=== PATIENT | male | born 1975 | race Caucasian/White ===

== ENCOUNTER 2017-02-17 11:24 | Emergency (ER) | payer SELFPAY ==
[2017-02-17] MEDS ORDERED: Albuterol/Ipratropium 3.0-0.5 MG/3 ML Neb Soln NEB ONE (12:03)
[2017-02-17 12:39] LABS: CHLORIDE,CL 100 mmol/L (98-110); SODIUM,NA 137 mmol/L (136-146)
--- NOTE | 2017-02-17 12:49 | CR ---
EXAMINATION: Two-view chest (PA and Lateral views). HISTORY: Shortness of breath. FINDINGS: The trachea is midline. The cardiomediastinal silhouette is within normal limits. No pulmonary infil trates, effusions or pneumothorax. Osseous structures appear unremarkable. IMPRESSION: No acute cardiopulmonary process.
--- NOTE | 2017-02-17 13:02 | EDM.PDOC ---
ED HPI GENERAL MEDICAL PROBLEM - General Chief Complaint: General Stated Complaint: HIGH BLOOD PRESSURE, RETAINING WATER Time Seen by Provider: 02/17/17 11:30 Source of Information: Reports: Patient History Limitations: Reports: No Limitations - History of Present Illness INITIAL COMMENTS - FREE TEXT/NARRATIVE: History of present illness: []Patient stopped taking his blood pressure medicine about a year ago. Patient stated he noticed increasing leg swelling and then restart his blood pressure meds he comes in complaining high blood pressure and leg swelling. He denies pain in his legs denies any shortness of breath, fevers, chills or chest pain. Patient is a smoker and does not follow-up with primary care. Review of systems: As per history of present illness and below otherwise all systems reviewed and negative. Past medical history: As per history of present illness and as reviewed below otherwise noncontributory. Surgical history: As per history of present illness and as reviewed below otherwise noncontributory. Social history: No reported history of drug or alcohol abuse. Family history: As per history of present illness and as reviewed below otherwise noncontributory. Physical exam: General: Well developed, well nourished in NAD HEENT: Atraumatic, normocephalic, pupils reactive, negative for conjunctival pallor or scleral icterus, mucous membranes moist, throat clear, neck supple, nontender, trachea midline. Lungs: Bilateral faint wheezing, no accessory muscle use to auscultation, breath sounds equal bilaterally, chest nontender. Heart: S1S2, regular, negative for clicks, rubs, or JVD. 1+ pitting edema, nontender Abdomen: Soft, nondistended, nontender. Negative for masses or hepatosplenomegaly. Negative for costovertebral tenderness. Pelvis: Stable nontender. Genitourinary: Deferred. Rectal: Deferred. Extremities: Atraumatic, negative for cords or calf pain. Neurovascular unremarkable. Neuro: Awake, alert, oriented. Cranial nerves II through XII unremarkable. Cerebellum unremarkable. Motor and sensory unremarkable throughout. Exam nonfocal. Diagnostics: []Electrolytes and CBC, BNP and troponin are negative EKG shows normal sinus rhythm without ischemia patient presents with a mildly elevated blood pressure Therapeutics: []Was given a DuoNeb Impression: []Hypertension, bilateral leg edema Plan: []Continue blood pressure medicines, Lasix and potassium for 5 days follow-up with PMD. Definitive disposition and diagnosis as appropriate pending reevaluation and review of above. both feet Pain Score (Numeric/FACES): 3 - Related Data Allergies Allergy/AdvReac Type Severity Reaction Status Date / Time No Known Allergies Allergy Verified 02/17/17 11:29 Home Meds: Home Meds [place] Supplement tab BID 02/17/17 [History] Carvedilol 12.5 mg PO BID 02/17/17 [History] Furosemide [Lasix] 20 mg PO DAILY #10 tablet 02/17/17 [Rx] Potassium Chloride 10 meq PO DAILY #10 capsule.er 02/17/17 [Rx] Past Medical History - Past Health History Medical/Surgical History: Denies Medical/Surgical History Cardiovascular History: Reports: Hypertension Social & Family History - Family History Family Medical History: Noncontributory - Tobacco Use Smoking Status *Q: Current Every Day Smoker Years of Tobacco use: 22 Packs/Tins Daily: 1 - Caffeine Use Caffeine Use: Reports: Coffee Caffeine Use Comment: 2 cups daily - Recreational Drug Use Recreational Drug Use: Yes Recreational Drug Type: Reports: Marijuana/Hashish Recreational Drug Use Frequency: Binges ED ROS GENERAL - Review of Systems Review Of Systems: See Below ED EXAM, GENERAL - Physical Exam Exam: See Below (CHPI) Course - Vital Signs Last Recorded V/S: Last Vital Signs Temp 36.2 C 02/17/17 11:30 Pulse 102 H 02/17/17 11:30 Resp 20 02/17/17 11:30 BP 131/96 H 02/17/17 11:30 Pulse Ox 97 02/17/17 12:03 - Orders/Labs/Meds Orders: Active Orders 24 hr Category Date Time Status Cardiac Monitoring [RC] . DIRECTED Care 02/17/17 11:43 Active EKG Documentation Completion [RC] STAT Care 02/17/17 11:43 Active RT Aerosol Therapy [RC] ASDIRECTED Care 02/17/17 12:03 Active Saline Lock Insert [OM.PC] Stat Oth 02/17/17 11:43 Ordered Labs: Laboratory Tests 02/17/17 02/17/17 02/17/17 Range/Units 12:04 12:04 12:04 WBC 14.94 H (4.0-11.0) K/uL RBC 4.89 (4.50-5.90) M/uL Hgb 15.5 (13.0-17.0) g/dL Hct 46.4 (38.0-50.0) % MCV 94.9 (80.0-98.0) fL MCH 31.7 (27.0-32.0) pg MCHC 33.4 (31.0-37.0) g/dL RDW Std Deviation 50.3 (28.0-62.0) fl RDW Coeff of Mary Jo 15 (11.0-15.0) % Plt Count 333 (150-400) K/uL MPV 9.10 (7.40-12.00) fL Neut % (Auto) 66.9 (48.0-80.0) % Lymph % (Auto) 23.4 (16.0-40.0) % [place] % (Auto) 5.4 (0.0-15.0) % Eos % (Auto) 3.9 (0.0-7.0) % Baso % (Auto) 0.4 (0.0-1.5) % Neut # (Auto) 10.0 H (1.4-5.7) K/uL Lymph # (Auto) 3.5 H (0.6-2.4) K/uL [place] # (Auto) 0.8 (0.0-0.8) K/uL Eos # (Auto) 0.6 (0.0-0.7) K/uL Baso # (Auto) 0.1 (0.0-0.1) K/uL Nucleated RBC % 0.0 /100WBC Nucleated RBCs # 0 K/uL Sodium 137 (136-146) mmol/L Potassium 4.7 (3.5-5.1) mmol/L Chloride 100 (98-110) mmol/L Carbon Dioxide 27 (21-31) mmol/L BUN 12 (6.0-23.0) mg/dL Creatinine 1.0 (0.6-1.5) mg/dL Est Cr Clr Drug Dosing 88.61 mL/min Estimated GFR (MDRD) > 60.0 ml/min Glucose 94 (60-110) mg/dL Calcium 9.4 (8.8-10.8) mg/dL Total Bilirubin 0.4 (0.1-1.5) mg/dL AST 22 (5-40) IU/L ALT 42 (8-54) IU/L Alkaline Phosphatase 80 (40-150) Troponin I < 0.10 (0.0-0.29) NG/ML B-Natriuretic Peptide (<100) PG/ML Total Protein 7.7 (6.0-8.0) g/dL Albumin 4.4 (3.5-5.0) g/dL Globulin 3.3 (2.0-3.5) g/dL Albumin/Globulin Ratio 1.3 (1.3-2.8) /08/24 Range/Units 12:04 WBC (4.0-11.0) K/uL RBC (4.50-5.90) M/uL Hgb (13.0-17.0) g/dL Hct (38.0-50.0) % MCV (80.0-98.0) fL MCH (27.0-32.0) pg MCHC (31.0-37.0) g/dL RDW Std Deviation (28.0-62.0) fl RDW Coeff of Mary Jo (11.0-15.0) % Plt Count (150-400) K/uL MPV (7.40-12.00) fL Neut % (Auto) (48.0-80.0) % Lymph % (Auto) (16.0-40.0) % [place] % (Auto) (0.0-15.0) % Eos % (Auto) (0.0-7.0) % Baso % (Auto) (0.0-1.5) % Neut # (Auto) (1.4-5.7) K/uL Lymph # (Auto) (0.6-2.4) K/uL [place] # (Auto) (0.0-0.8) K/uL Eos # (Auto) (0.0-0.7) K/uL Baso # (Auto) (0.0-0.1) K/uL Nucleated RBC % /100WBC Nucleated RBCs # K/uL Sodium (136-146) mmol/L Potassium (3.5-5.1) mmol/L Chloride (98-110) mmol/L Carbon Dioxide (21-31) mmol/L BUN (6.0-23.0) mg/dL Creatinine (0.6-1.5) mg/dL Est Cr Clr Drug Dosing mL/min Estimated GFR (MDRD) ml/min Glucose (60-110) mg/dL Calcium (8.8-10.8) mg/dL Total Bilirubin (0.1-1.5) mg/dL AST (5-40) IU/L ALT (8-54) IU/L Alkaline Phosphatase (40-150) Troponin I (0.0-0.29) NG/ML B-Natriuretic Peptide 56 (<100) PG/ML Total Protein (6.0-8.0) g/dL Albumin (3.5-5.0) g/dL Globulin (2.0-3.5) g/dL Albumin/Globulin Ratio (1.3-2.8) Meds: Medications Discontinued Medications Generic Name Dose Route Start Last Admin Trade Name Freq PRN Reason Stop Dose Admin Albuterol/Ipratropium 3 ml 02/17/17 12:03 02/17/17 12:14 Duoneb 3.0-0.5 Mg/3 Ml NEB 02/17/17 12:04 3 ml ONETIME ONE Administration Departure - Departure Time of Disposition: 13:02 Disposition: Home, Self-Care 01 Condition: good Clinical Impression: Uncontrolled hypertension, Bilateral leg edema - Discharge Information Prescriptions: Furosemide [Lasix] 20 mg PO DAILY #10 tablet Potassium Chloride 10 meq PO DAILY #10 capsule.er Referrals: PCP,None [Primary Care Provider] - Forms: ED Department Discharge Additional Instructions: The following information is given to patients seen in the emergency department who are being discharged to home. This information is to outline your options for follow-up care. We provide all patients seen in our emergency department with a follow-up referral. The need for follow-up, as well as the timing and circumstances, are variable depending upon the specifics of your emergency department visit. If you don't have a primary care physician on staff, we will provide you with a referral. We always advise you to contact your personal physician following an emergency department visit to inform them of the circumstance of the visit and for follow-up with them and/or the need for any referrals to a consulting specialist. The emergency department will also refer you to a specialist when appropriate. This referral assures that you have the opportunity for follow-up care with a specialist. All of these measure are taken in an effort to provide you with optimal care, which includes your follow-up. Under all circumstances we always encourage you to contact your private physician who remains a resource for coordinating your care. When calling for follow-up care, please make the office aware that this follow-up is from your recent emergency room visit. If for any reason you are refused follow-up, please contact the Emergency Department at and asked to speak to the emergency department charge nurse. Take her blood pressure medicines as directed, Lasix and potassium daily, follow -up with regular physician within a week. Return to ER if any symptoms change or worsen Primary Care [address] [place] [id number] - My Orders Last 24 Hours: My Active Orders 02/17/17 11:43 Cardiac Monitoring [RC] . DIRECTED EKG Documentation Completion [RC] STAT Saline Lock Insert [OM.PC] Stat 02/17/17 12:03 RT Aerosol Therapy [RC] ASDIRECTED - Assessment/Plan Last 24 Hours: My Active Orders 02/17/17 11:43 Cardiac Monitoring [RC] . DIRECTED EKG Documentation Completion [RC] STAT Saline Lock Insert [OM.PC] Stat 02/17/17 12:03 RT Aerosol Therapy [RC] ASDIRECTED
[2017-02-17 13:16] VITALS: BP 127/67
== END 2017-02-17 13:22 | disposition home or self-care (01) ==
LOC: MW.ED 11:24
DX: I10 Essential (primary) hypertension (principal); R60.0 Localized edema; F17.210 Nicotine dependence, cigarettes, uncomplicated; Z79.899 Other long term (current) drug therapy
CPT/HCPCS: 36415; 71020; 71020-26; 80053; 83880; 84484; 85025; 93005; 94664; 99283; 99284-25

== ENCOUNTER 2017-04-29 08:26 | Emergency (ER) | payer SELFPAY ==
[2017-04-29] MEDS ORDERED: Ketorolac 30 MG/ML SDV IM ONE (08:39)
--- NOTE | 2017-04-29 08:47 | EDM.PDOC ---
ED HPI GENERAL MEDICAL PROBLEM - General Chief Complaint: Lower Extremity Injury/Pain Stated Complaint: TWISTED LT ANKLE Time Seen by Provider: 04/29/17 08:34 - History of Present Illness INITIAL COMMENTS - FREE TEXT/NARRATIVE: HISTORY AND PHYSICAL: History of present illness: This is a 41-year-old male presenting to the emergency department chief complaint of left ankle pain. He tells me that he had a twist and fall last night after tripping over a hose. He tells me that he was able to initially bear weight and he thought he would sleep it off. However he woke up this morning, and was unable to bear any weight. He denies any numbness or tingling. He has no other complaints. Review of systems: As per history of present illness and below otherwise all systems reviewed and negative. Past medical history: As per history of present illness and as reviewed below otherwise noncontributory. Surgical history: As per history of present illness and as reviewed below otherwise noncontributory. Social history: No reported history of drug or alcohol abuse. Family history: As per history of present illness and as reviewed below otherwise noncontributory. Physical exam: HEENT: Atraumatic, normocephalic, pupils reactive, negative for conjunctival pallor or scleral icterus, mucous membranes moist, throat clear, neck supple, nontender, trachea midline. Lungs: Clear to auscultation, breath sounds equal bilaterally, chest nontender. Heart: S1S2, regular, negative for clicks, rubs, or JVD. Abdomen: Soft, nondistended, nontender. Negative for masses or hepatosplenomegaly. Negative for costovertebral tenderness. Pelvis: Stable nontender. Genitourinary: Deferred. Rectal: Deferred. Extremities: Tenderness on palpation over the lateral aspect of the leg, lateral malleolus and 5th metatarsal. Ankle does not appear to be acutely displaced. No significant induration. 1+ Pitting edema present secondary to CHF bilaterally. Neuro: Awake, alert, oriented. Cranial nerves II through XII unremarkable. Cerebellum unremarkable. Motor and sensory unremarkable throughout. Exam nonfocal. Diagnostics: X-ray Tibia Fibula X-ray ankle X-ray foot Therapeutics: IM Toradol 30mg Impression: Avulsion fracture of navicular bone. Plan: Discharge home with cam walker boot, crutches and advised to be non- weightbearing. Follow up with Dr. Ansari, podiatry. Left Ankle Pain Score (Numeric/FACES): 6 - Related Data Allergies Allergy/AdvReac Type Severity Reaction Status Date / Time No Known Allergies Allergy Verified 02/17/17 11:29 Home Meds: Home Meds Carvedilol 12.5 mg PO BID 02/17/17 [History] Bumetanide 1 mg PO BID 04/29/17 [History] Potassium Chloride 20 meq PO DAILY 04/29/17 [History] Past Medical History - Past Health History Medical/Surgical History: Denies Medical/Surgical History Cardiovascular History: Reports: Hypertension Social & Family History - Family History Family Medical History: Noncontributory - Tobacco Use Smoking Status *Q: Current Every Day Smoker Years of Tobacco use: 20 Packs/Tins Daily: 1 - Caffeine Use Caffeine Use: Reports: Coffee, Tea Caffeine Use Comment: 2 cups daily - Recreational Drug Use Recreational Drug Use: No Recreational Drug Type: Reports: Marijuana/Hashish Recreational Drug Use Frequency: Binges Review of Systems - Review of Systems Review Of Systems: See Below (see dictation) ED EXAM, GENERAL - Physical Exam Exam: See Below (see dictation) Course - Vital Signs Last Recorded V/S: Last Vital Signs Temp 35.9 C 04/29/17 08:39 Pulse 93 04/29/17 08:39 Resp 18 04/29/17 08:39 BP 137/89 04/29/17 08:39 Pulse Ox 95 04/29/17 08:39 - Orders/Labs/Meds Orders: Active Orders 24 hr Category Date Time Status Communication Order [RC] STAT Care 04/29/17 09:38 Active Meds: Medications Discontinued Medications Generic Name Dose Route Start Last Admin Trade Name Freq PRN Reason Stop Dose Admin Ketorolac Tromethamine 30 mg 04/29/17 08:39 04/29/17 09:04 Toradol IM 04/29/17 08:40 30 mg ONETIME ONE Administration Departure - Departure Time of Disposition: 09:45 Disposition: Home, Self-Care 01 Condition: Good Clinical Impression: Avulsion fracture of navicular bone of left foot - Discharge Information Referrals: Madie Mckay DPM [Physician] - Stefan Iglesias MD [Primary Care Provider] - Forms: ED Department Discharge Additional Instructions: The following information is given to patients seen in the emergency department who are being discharged to home. This information is to outline your options for follow-up care. We provide all patients seen in our emergency department with a follow-up referral. The need for follow-up, as well as the timing and circumstances, are variable depending upon the specifics of your emergency department visit. If you don't have a primary care physician on staff, we will provide you with a referral. We always advise you to contact your personal physician following an emergency department visit to inform them of the circumstance of the visit and for follow-up with them and/or the need for any referrals to a consulting specialist. The emergency department will also refer you to a specialist when appropriate. This referral assures that you have the opportunity for follow-up care with a specialist. All of these measure are taken in an effort to provide you with optimal care, which includes your follow-up. Under all circumstances we always encourage you to contact your private physician who remains a resource for coordinating your care. When calling for follow-up care, please make the office aware that this follow-up is from your recent emergency room visit. If for any reason you are refused follow-up, please contact the [facility] Emergency Department at and asked to speak to the emergency department charge nurse. Care Plan Goals: Follow up appointment with Dr. Mckay in the [facility] on 05/05/17 at 1500. - My Orders Last 24 Hours: My Active Orders 04/29/17 09:38 Communication Order [RC] STAT - Assessment/Plan Last 24 Hours: My Active Orders 04/29/17 09:38 Communication Order [RC] STAT
--- NOTE | 2017-04-29 09:31 | CR ---
EXAMINATION: Left foot, left ankle, left tibia and fibula HISTORY: Pain COMPARISON: None TECHNIQUE: 2 views of the left foot, 2 views of the left ankle, and 2 views of the left tibia and fi bula FINDINGS: There is mild generalized soft tissue swelling and edema noted from the left knee to the l eft foot. There is a small linear ossific density along the dorsal aspect of the ventricular bone, l ikely a small avulsion fracture. There is a small Achilles calcaneal spur. Remaining osseous structu res and joint spaces appear intact. Bone mineralization is otherwise normal. No foreign bodies or shaw bcutaneous gas noted. The ankle mortise and talar dome appear intact. IMPRESSION: 1. Probable small avulsion fracture along the dorsal aspect of the navicular bone. 2. Generalized soft tissue swelling/edema.
[2017-04-29 11:27] VITALS: BP 147/84
== END 2017-04-29 10:10 | disposition home or self-care (01) ==
LOC: MW.ED 08:26
DX: S92.252A Displaced fracture of navicular [scaphoid] of left foot, initial encounter for closed fracture (principal); I10 Essential (primary) hypertension; F17.210 Nicotine dependence, cigarettes, uncomplicated; Z79.899 Other long term (current) drug therapy; W01.0XXA Fall on same level from slipping, tripping and stumbling without subsequent striking against object, initial encounter
CPT/HCPCS: 73590; 73600; 73620; 96372; 99283; J1885

== ENCOUNTER 2019-04-16 12:50 | Emergency (ER) | payer BC ==
[2019-04-16 13:02] VITALS: BP 146/102; PULSE 113
--- NOTE | 2019-04-16 13:03 | EDM.PDOC ---
ED HPI GENERAL MEDICAL PROBLEM - General Chief Complaint: ENT Problem Stated Complaint: SWOLLEN EYES Time Seen by Provider: 04/16/19 13:00 Source of Information: Reports: Patient History Limitations: Reports: No Limitations - History of Present Illness INITIAL COMMENTS - FREE TEXT/NARRATIVE: History of present illness: [Patient has swelling of his left lower eyelid and states he had one year ago with a similar presentation and was treated with an eyedrop. He is requesting the same eyedrop as it worked well for him. He versed, visual changes, drainage , trauma or foreign body sensation in his eye. Review of systems: As per history of present illness and below otherwise all systems reviewed and negative. Past medical history: As per history of present illness and as reviewed below otherwise noncontributory. Surgical history: As per history of present illness and as reviewed below otherwise noncontributory. Social history: No reported history of drug or alcohol abuse. Family history: As per history of present illness and as reviewed below otherwise noncontributory. Physical exam: General: Well developed, well nourished in NAD HEENT: Atraumatic, normocephalic, pupils reactive, negative for conjunctival pallor or scleral icterus,right lower eyelid edematous and swollen mucous membranes moist, throat clear, neck supple, nontender, trachea midline. Lungs: Clear to auscultation, breath sounds equal bilaterally, chest nontender. Heart: S1S2, regular, negative for clicks, rubs, or JVD. Abdomen: NABS, Soft, nondistended, nontender. Negative for masses or hepatosplenomegaly. Negative for costovertebral tenderness. Pelvis: Stable nontender. Genitourinary: Deferred. Rectal: Deferred. Extremities: Atraumatic, negative for cords or calf pain. Neurovascular unremarkable. Neuro: Awake, alert, oriented. Cranial nerves II through XII unremarkable. Cerebellum unremarkable. Motor and sensory unremarkable throughout. Exam nonfocal. Skin:warm and dry Diagnostics: None Therapeutics: None ED Course: Stable Impression: blepharitis Prescriptions: tobramycin Plan: Follow-up with ophthalmology Definitive disposition and diagnosis as appropriate pending reevaluation and review of above. Right Eye Pain Score (Numeric/FACES): 4 - Related Data Allergies Allergy/AdvReac Type Severity Reaction Status Date / Time No Known Allergies Allergy Verified 04/16/19 13:02 Home Meds: Home Meds Carvedilol 12.5 mg PO BID 02/17/17 [History] Bumetanide 2 mg PO BID 04/29/17 [History] Potassium Chloride 20 meq PO DAILY 04/29/17 [History] Tobramycin 0.3% [Tobramycin 0.3% Ophth Soln] 1 drop OP QID #1 bottle 04/16/19 [ Rx] Past Medical History - Past Health History Medical/Surgical History: Denies Medical/Surgical History HEENT History: Reports: None Cardiovascular History: Reports: Hypertension - Infectious Disease History Infectious Disease History: Reports: None - Past Surgical History Head Surgeries/Procedures: Reports: None Social & Family History - Family History Family Medical History: Noncontributory - Caffeine Use Caffeine Use: Reports: Coffee, Tea Caffeine Use Comment: 2 cups daily ED ROS GENERAL - Review of Systems Review Of Systems: See Below ED EXAM GENERAL W FULL EYE - Physical Exam Exam: See Below Course - Vital Signs Last Recorded V/S: Last Vital Signs Temp Pulse 113 H 04/16/19 13:01 Resp 18 04/16/19 13:01 BP 146/102 H 04/16/19 13:01 Pulse Ox 93 L 04/16/19 13:01 Departure - Departure Time of Disposition: 13:12 Disposition: Home, Self-Care 01 Condition: Good Clinical Impression: Blepharitis of eyelid of right eye Qualifiers: Blepharitis type: unspecified type Eyelid: lower Qualified Code(s): H01.002 - Unspecified blepharitis right lower eyelid - Discharge Information *PRESCRIPTION DRUG MONITORING PROGRAM REVIEWED*: No *COPY OF PRESCRIPTION DRUG MONITORING REPORT IN PATIENT GABY: No Prescriptions: Tobramycin 0.3% [Tobramycin 0.3% Ophth Soln] 1 drop OP QID #1 bottle Referrals: PCP,Unknown [Primary Care Provider] - Forms: ED Department Discharge Additional Instructions: The following information is given to patients seen in the emergency department who are being discharged to home. This information is to outline your options for follow-up care. We provide all patients seen in our emergency department with a follow-up referral. The need for follow-up, as well as the timing and circumstances, are variable depending upon the specifics of your emergency department visit. If you don't have a primary care physician on staff, we will provide you with a referral. We always advise you to contact your personal physician following an emergency department visit to inform them of the circumstance of the visit and for follow-up with them and/or the need for any referrals to a consulting specialist. The emergency department will also refer you to a specialist when appropriate. This referral assures that you have the opportunity for follow-up care with a specialist. All of these measure are taken in an effort to provide you with optimal care, which includes your follow-up. Under all circumstances we always encourage you to contact your private physician who remains a resource for coordinating your care. When calling for follow-up care, please make the office aware that this follow-up is from your recent emergency room visit. If for any reason you are refused follow-up, please contact the [facility] Emergency Department at and asked to speak to the emergency department charge nurse. Take meds as directed, follow up with your primary care physician, return to ER if symptoms worsen or change. [address] [address]
== END 2019-04-16 13:22 | disposition home or self-care (01) ==
LOC: MW.ED 12:50
DX: H01.002 Unspecified blepharitis right lower eyelid (principal); I10 Essential (primary) hypertension; Z79.899 Other long term (current) drug therapy
CPT/HCPCS: 99282; 99283

== ENCOUNTER 2019-07-07 11:21 | Emergency (ER) | payer BC ==
[2019-07-07 11:32] VITALS: BP 138/79
--- NOTE | 2019-07-07 11:45 | EDM.PDOC ---
ED HPI GENERAL MEDICAL PROBLEM - General Chief Complaint: Lower Extremity Injury/Pain Stated Complaint: POSSIBLE BLOOD CLOT;RT LEG Time Seen by Provider: 07/07/19 11:31 Source of Information: Reports: Patient History Limitations: Reports: No Limitations - History of Present Illness INITIAL COMMENTS - FREE TEXT/NARRATIVE: HISTORY AND PHYSICAL: History of present illness: Patient is a 44-year-old male presents to the ED today with concern of right leg discomfort times one month. Patient states in the back of his leg, by his hamstring, he has had occasional cramping off and on at night. Patient states he also has some tingling and numbness in the back of his right leg. Patient states his mother told him he could have a blood clot and since then he has been anxious about the cramping. Patient denies any trauma or injury to the leg. Patient states he is not currently having any pain in the leg or any redness or swelling. Patient denies any history of blood clots or any shortness of breath. Patient states he has a history of hypertension and chronic back pain but denies any other health history. Patient denies fever, chills, chest pain, shortness of breath, or cough. Denies headache, neck stiff ness, change in vision, syncope, or near syncope. Denies nausea, vomiting, abdominal pain, diarrhea, constipation, or dysuria. Has not noted any blood in urine or stool. Patient has been eating and drinking appropriately. Review of systems: As per history of present illness and below otherwise all systems reviewed and negative. Past medical history: As per history of present illness and as reviewed below otherwise noncontributory. Surgical history: As per history of present illness and as reviewed below otherwise noncontributory. Social history: See social history for further information Family history: As per history of present illness and as reviewed below otherwise noncontributory. Physical exam: General: Patient is alert, oriented, and in no acute distress. Patient sitting comfortably on exam table. HEENT: Atraumatic, normocephalic, pupils equal and reactive bilaterally, negative for conjunctival pallor or scleral icterus, mucous membranes moist, TMs normal bilaterally, throat clear, neck supple, nontender, trachea midline. No drooling or trismus noted. No meningeal signs. No hot potato voice noted. Lungs: Clear to auscultation, breath sounds equal bilaterally, chest nontender. Heart: S1S2, regular rate and rhythm without overt murmur Abdomen: Soft, nondistended, nontender. Negative for masses or hepatosplenomegaly. Negative for costovertebral tenderness. Pelvis: Stable nontender. Genitourinary: Deferred. Rectal: Deferred. Skin: Intact, warm, dry. No lesions or rashes noted. Extremities: Atraumatic, negative for cords or calf pain. Neurovascular unremarkable. No obvious deformity of the bilateral lower extremities. Patient has full range of motion of complete bilateral lower chambers without pain or difficulty. No appreciable edema or erythema of the right lower extremity. No pain to palpation of the complete right lower extremity the patient does point to the mid posterior femur area stating this is where his symptoms do occur. Dorsalis pedis and posterior tibial pulses are grossly intact with capillary refill less than 2 seconds bilaterally. Neuro: Awake, alert, oriented. Cranial nerves II through XII unremarkable. Cerebellum unremarkable. Motor and sensory unremarkable throughout. Exam nonfocal. Notes: Discussed the importance for follow-up with a primary care provider. Voices understanding and is agreeable to plan of care. Denies any further questions or concerns at this time. Diagnostics: CBC, CMP, right lower extremity ultrasound, right femur x-ray Therapeutics: None Prescription: None Impression: Right leg pain Plan: 1. Rest, ice and or heat, elevate the affected extremity. You can apply ice and or heat 15 minutes on, 15 minutes off. 2. Tylenol and/or Ibuprofen as directed for pain management or discomfort. 3. Follow up with the primary care provider as discussed. Return to the ED as needed and as discussed. Definitive disposition and diagnosis as appropriate pending reevaluation and review of above. Right leg Pain Score (Numeric/FACES): 5 - Related Data Allergies Allergy/AdvReac Type Severity Reaction Status Date / Time No Known Allergies Allergy Verified 07/07/19 11:31 Home Meds: Home Meds Carvedilol 12.5 mg PO BID 02/17/17 [History] Bumetanide 2 mg PO BID 04/29/17 [History] Potassium Chloride 20 meq PO DAILY 04/29/17 [History] traMADol [Ultram] 1 tab PO Q12HR 07/07/19 [History] Past Medical History - Past Health History Medical/Surgical History: Denies Medical/Surgical History HEENT History: Reports: None Cardiovascular History: Reports: Hypertension Respiratory History: Reports: None Gastrointestinal History: Reports: None Genitourinary History: Reports: None Musculoskeletal History: Reports: Back Pain, Chronic Neurological History: Reports: None Psychiatric History: Reports: None Endocrine/Metabolic History: Reports: None Hematologic History: Reports: None Immunologic History: Reports: None Oncologic (Cancer) History: Reports: None Dermatologic History: Reports: None - Infectious Disease History Infectious Disease History: Reports: None - Past Surgical History Head Surgeries/Procedures: Reports: None HEENT Surgical History: Reports: None Cardiovascular Surgical History: Reports: None Respiratory Surgical History: Reports: None GI Surgical History: Reports: None Male Surgical History: Reports: None Endocrine Surgical History: Reports: None Neurological Surgical History: Reports: None Musculoskeletal Surgical History: Reports: None Oncologic Surgical History: Reports: None Dermatological Surgical History: Reports: None Social & Family History - Family History Family Medical History: Noncontributory - Tobacco Use Smoking Status *Q: Former Smoker Used Tobacco, but Quit: Yes Month/Year Tobacco Last Used: 2018 - Caffeine Use Caffeine Use: Reports: Coffee Caffeine Use Comment: 2 cups daily - Recreational Drug Use Recreational Drug Use: No Review of Systems - Review of Systems Review Of Systems: ROS reveals no pertinent complaints other than HPI. ED EXAM, GENERAL - Physical Exam Exam: See Below (See dictation) Course - Vital Signs Last Recorded V/S: Last Vital Signs Temp 96.4 F 07/07/19 11:25 Pulse 100 07/07/19 11:25 Resp 18 07/07/19 11:25 BP 138/79 07/07/19 11:25 Pulse Ox 96 07/07/19 11:25 - Orders/Labs/Meds Labs: Laboratory Tests 07/07/19 07/07/19 Range/Units 11:53 11:53 WBC 12.86 H (4.0-11.0) K/uL RBC 4.70 (4.50-5.90) M/uL Hgb 14.9 (13.0-17.0) g/dL Hct 43.4 (38.0-50.0) % MCV 92.3 (80.0-98.0) fL MCH 31.7 (27.0-32.0) pg MCHC 34.3 (31.0-37.0) g/dL RDW Std Deviation 46.9 (28.0-62.0) fl RDW Coeff of Mary Jo 14 (11.0-15.0) % Plt Count 302 (150-400) K/uL MPV 9.10 (7.40-12.00) fL Neut % (Auto) 61.6 (48.0-80.0) % Lymph % (Auto) 27.0 (16.0-40.0) % [place] % (Auto) 5.4 (0.0-15.0) % Eos % (Auto) 5.5 (0.0-7.0) % Baso % (Auto) 0.5 (0.0-1.5) % Neut # (Auto) 7.9 H (1.4-5.7) K/uL Lymph # (Auto) 3.5 H (0.6-2.4) K/uL [place] # (Auto) 0.7 (0.0-0.8) K/uL Eos # (Auto) 0.7 (0.0-0.7) K/uL Baso # (Auto) 0.1 (0.0-0.1) K/uL Nucleated RBC % 0.0 /100WBC Nucleated RBCs # 0 K/uL Sodium 135 L (136-148) mmol/L Potassium 3.3 L (3.5-5.1) mmol/L Chloride 97 L (98-107) mmol/L Carbon Dioxide 28.0 (21.0-32.0) mmol/L BUN 13 (7.0-18.0) mg/dL Creatinine 1.1 (0.8-1.3) mg/dL Est Cr Clr Drug Dosing 78.14 mL/min Estimated GFR (MDRD) > 60.0 ml/min Glucose 113 H (74-106) mg/dL Calcium 9.5 (8.5-10.1) mg/dL Total Bilirubin 0.6 (0.2-1.0) mg/dL AST 25 (15-37) IU/L ALT 39 (14-63) IU/L Alkaline Phosphatase 72 (46-116) U/L Total Protein 8.6 H (6.4-8.2) g/dL Albumin 3.8 (3.4-5.0) g/dL Globulin 4.8 H (2.6-4.0) g/dL Albumin/Globulin Ratio 0.8 L (0.9-1.6) Departure - Departure Time of Disposition: 12:55 Disposition: Home, Self-Care 01 Clinical Impression: Right leg pain - Discharge Information Referrals: Stefan Iglesias MD [Primary Care Provider] - Forms: ED Department Discharge Additional Instructions: The following information is given to patients seen in the emergency department who are being discharged to home. This information is to outline your options for follow-up care. We provide all patients seen in our emergency department with a follow-up referral. The need for follow-up, as well as the timing and circumstances, are variable depending upon the specifics of your emergency department visit. If you don't have a primary care physician on staff, we will provide you with a referral. We always advise you to contact your personal physician following an emergency department visit to inform them of the circumstance of the visit and for follow-up with them and/or the need for any referrals to a consulting specialist. The emergency department will also refer you to a specialist when appropriate. This referral assures that you have the opportunity for follow-up care with a specialist. All of these measure are taken in an effort to provide you with optimal care, which includes your follow-up. Under all circumstances we always encourage you to contact your private physician who remains a resource for coordinating your care. When calling for follow-up care, please make the office aware that this follow-up is from your recent emergency room visit. If for any reason you are refused follow-up, please contact the [facility] Emergency Department at and asked to speak to the emergency department charge nurse. [facility] Primary [facility] [address] [place] [id number] [id number] 1. Rest, ice and or heat, elevate the affected extremity. You can apply ice and or heat 15 minutes on, 15 minutes off. 2. Tylenol and/or Ibuprofen as directed for pain management or discomfort. 3. Follow up with the primary care provider as discussed. Return to the ED as needed and as discussed.
--- NOTE | 2019-07-07 12:19 | CR ---
Right femur: AP and lateral views of the right femur were obtained. Comparison: No previous femur exam. No fracture or other bony abnormality is appreciated. Impression: No bony abnormality is identified on two-view right femur exam. Diagnostic code #1 MTDD
[2019-07-07 12:30] LABS: BLOOD UREA NITROGEN,BUN 13 mg/dL (7.0-18.0); CHLORIDE,CL 97 mmol/L (98-107); GLUCOSE RANDOM 113 mg/dL (74-106); POTASSIUM,K 3.3 mmol/L (3.5-5.1); SODIUM,NA 135 mmol/L (136-148)
--- NOTE | 2019-07-07 12:43 | US ---
Right lower extremity deep venous ultrasound: Duplex and color Doppler imaging was obtained of the right common femoral, superficial femoral, popliteal and posterior tibial veins. Technologist's note: Limited exam due to body habitus Normal phasic flow, augmentation and compression is seen. Impression: 1. Slightly limited study. 2. No findings of deep venous thrombosis is seen within the right lower extremity. Diagnostic code #2 MTDD
[2019-07-07 13:23] VITALS: PULSE 98
== END 2019-07-07 13:13 | disposition home or self-care (01) ==
LOC: MW.ED 11:21
DX: M79.604 Pain in right leg (principal); I10 Essential (primary) hypertension; Z79.899 Other long term (current) drug therapy; Z87.891 Personal history of nicotine dependence
CPT/HCPCS: 36415; 73552-26-LT; 73552-RT; 80053; 85025; 93971-26-RT; 93971-RT; 99284-25